=== PATIENT | female | born 1965 | race Two or more races ===

== ENCOUNTER 2025-01-14 15:55 | Emergency (ER) | payer OTHER ==
[~2025-01-14] VITALS: Ht 152.4 cm; Wt 91.9 kg
--- NOTE | 2025-01-14 17:08 | ED.PDOC ---
GI ASSESSMENT HPI Comments 59 year old female with PMHx gallstones presents to ED for chief complaint epigastric abd pain with n/v/d. Pt reports abd pain radiates to right flank region. Pt states pain is similar to cholelithiasis pain. Pt denies chest pain, SOB, and urinary symptoms. Vital signs were stable at arrival. Chief Complaint: Abdominal Pain Time Seen by MD: 16:40 Reviewed Notes: Nurses Notes, Medications, Allergies Allergies: Coded Allergies: NO KNOWN ALLERGIES (Unverified , 01/14/25) Information Source: Patient Mode of Arrival: Ambulatory Timing: Days Duration: Since onset Prehospital treatment: None Quality: Sharp Vomitus: Watery Stool: Normal Severity: Mild Recent: None Recent Hx of: None Pain Location: Epigastric Modifying Factors: Nothing Associated sign and symptoms: Nausea, Vomiting, Diarrhea, Abdominal Pain, Other Past Medical History PAST MEDICAL HISTORY: Gallstones Surgical History: Denies all surgeries 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 Hx Family History Family History: Unknown Social History Smoker: Non-Smoker Alcohol: Denies ETOH Use Drugs: Denies Drug Use Lives In: Home Constitutional: denies: chills, diaphoresis, fatigue, fever, malaise, sweats, weakness, others EENTM: denies: blurred vision, double vision, ear bleeding, ear discharge, ear drainage, ear pain, ear ringing, eye pain, eye redness, hearing loss, mouth pain, mouth swelling, nasal discharge, nose bleeding, nose congestion, nose pain, photophobia, tearing, throat pain, throat swelling, voice changes, others Respiratory: denies: cough, hemoptysis, orthopnea, SOB at rest, shortness of breath, SOB with excertion, stridor, wheezing, others Cardiovascular: denies: chest pain, dizzy spells, diaphoresis, Dyspnea on exertion, edema, irregular heart beat, left arm pain, lightheadedness, palpitations, PND, syncope, others Gastrointestinal: reports: abdominal pain, diarrhea, nausea, vomiting; denies: abdomen distended, blood streaked bowels, constipated, dysphagia, difficulty swallowing, hematemesis, melena, poor appetite, poor fluid intake, rectal bleeding, rectal pain, others Genitourinary: reports: flank pain (left); denies: abnormal vagina bleeding, burning, dyspareunia, dysuria, frequency, hematuria, incontinence, pain, , vagina discharge, urgency, others Neurological: denies: dizziness, fainting, headache, left sided numbness, left sided weakness, numbness, paresthesia, pre-existing deficit, right sided numbness, right sided weakness, seizure, speech problems, tingling, tremors, weakness, others Musculoskeletal: denies: back pain, gout, joint pain, joint swelling, muscle pain, muscle stiffness, neck pain, others Integumetry: denies: bruises, change in color, change in hair/nails, dryness, laceration, lesions, lumps, rash, wounds, others Allergic/Immunocompromised: denies: Difficulty Healing, Frequent Infections, Hives, Itching, others Hematologic/Lymphatic: denies: anemia, blood clots, easy bleeding, easy bruising, swollen glands, others Endocrine: denies: excessive hunger, excessive sweating, excessive thirst, excessive urination, flushing, intolerance to cold, intolerance to heat, unexplained weight gain, unexplained weight loss, others Psychiatric: denies: anxiety, bipolar disorder, depression, hopeless, panic disorder, schizophrenia, sleepless, suicidal, others All Other Systems: Reviewed and Negative Physical Exam General Appearance: Moderate Distress (Moderate distress due to diffuse abdominal pain concerns.), Obese HEENT: Normal ENT Inspection, Pharynx Normal, TMs Normal Neck: Full Range of Motion, Non-Tender, Normal, Normal Inspection Respiratory: Chest Non-Tender, Lungs Clear, No Accessory Muscle Use, No Respiratory Distress, Normal Breath Sounds Cardiovascular: No Edema, No JVD, No Murmur, No Gallop, Normal Peripheral Pulses, Regular Rate/Rhythm Breast Exam: Deferred Gastrointestinal: No Pulsatile Mass, Normal Bowel Sounds, Soft, Other ( Diffuse epigastric tenderness to palpation extending bilaterally. Difficult to assess due to body habitus. No signs of trauma.) Genitalia: Deferred Pelvic: Deferred Rectal: Deferred Extremities: No calf tenderness, Normal capillary refill, Normal inspection, Normal range of motion, Non-tender, No pedal edema Musculoskeletal : Apperance: Normal Neurologic: Alert, No Motor Deficits, Normal Affect, Normal Mood, No Sensory Deficits Cerebellar Function: Normal Reflexes: Normal Skin: Dry, Normal Color, Warm Lymphatic: No Adenopathy Was a procedure done? Was a procedure done?: No GI differential Dx Differential Diagnosis: Bowel Obstruction, Cholangitis, Cholecystitis, Constipation, Gastritis/PUD, Gastroenteritis, Pancreatitis, UTI, Electrolyte Imbalance, Bacterial, Viral X-Ray, Labs, Meds, VS Vital Signs Date Time Temp Pulse Resp B/P (MAP) Pulse Ox O2 Delivery O2 Flow Rate FiO2 01/14/25 19:55 97.7 74 16 136/91 (106) 97 97.7 01/14/25 18:11 84 19 94 Room Air* 0 21 01/14/25 18:11 98.2 87 14 120/73 (89) 94 98.2 01/14/25 17:00 99.0 85 21 135/78 (97) 97 99.0 01/14/25 16:56 86 Lab Test 01/14/25 20:00 01/14/25 17:42 Range/Units Urine Color Yellow Yellow Urine Clarity Turbid H Clear Urine pH 6.0 5.0-9.0 Urine Specific [place] 1.020 1.001-1.035 Urine Protein Trace H Negative Urine Ketones Negative Negative Urine Blood Negative Negative /uL Urine Nitrite Negative Negative Urine Bilirubin Negative Negative Urine Urobilinogen Normal Negative mg/dL Urine Leukocyte Esterase Negative Negative /uL Urine RBC 27 0 - 4 /hpf Urine Microscopic WBC 3 0-5 /HPF Urine Squamous Epithelial Cells Many <5 /hpf Urine Bacteria None seen None Seen /hpf Urine Mucus Few None Seen Urine Glucose Normal Normal mg/dL White Blood Count 11.3 H 4.4-10.8 10^3/uL Red Blood Count 5.26 H 4.0-5.20 10^6/uL Hemoglobin 14.5 12.2-16.2 g/dL Hematocrit 44.5 36.0-46.0 % Mean Corpuscular Volume 84.7 80.0-100.0 fL Mean Corpuscular Hemoglobin 27.6 L 28.0-32.0 pg Mean Corpuscular Hemoglobin Concent 32.6 32.0-36.0 g/dL Red Cell Distribution Width 14.6 H 11.8-14.3 % Platelet Count 254 140-450 10^3/uL Mean Platelet Volume 9.0 6.9-10.8 fL Neutrophils (%) (Auto) 85.1 H 37.0-80.0 % Lymphocytes (%) (Auto) 8.2 L 10.0-50.0 % Monocytes (%) (Auto) 6.0 0.0-12.0 % Eosinophils (%) (Auto) 0.6 0.0-7.0 % Basophils (%) (Auto) 0.1 0.0-2.0 % Neutrophils # (Auto) 9.6 H 1.6-8.6 10 ^3/uL Lymphocytes # (Auto) 0.9 0.4-5.4 10 ^3/uL Monocytes # (Auto) 0.7 0-1.3 10 ^3/uL Eosinophils # (Auto) 0.1 0-0.8 10 ^3/uL Basophils # (Auto) 0 0-0.2 10 ^3/uL Nucleated Red Blood Cells 0.0 % Sodium Level 140 136-145 mmol/L Potassium Level 4.3 3.5-5.1 mmol/L Chloride Level 107 98-107 mmol/L Carbon Dioxide Level 26 20-31 mmol/L Anion Gap 7 5-15 Blood Urea Nitrogen 9 9-23 mg/dL Creatinine 0.68 0.550-1.02 mg/dL Glomerular Filtration Rate Calc 100 >90 mL/min BUN/Creatinine Ratio 13.2 10.0-20.0 Serum Glucose 113 H 74-106 mg/dL Calcium Level 9.6 8.7-10.4 mg/dL Total Bilirubin 0.6 0.2-1.0 mg/dL Aspartate Amino Transferase (AST) 33 13-40 U/L Alanine Aminotransferase (ALT) 24 7-40 U/L Alkaline Phosphatase 100 46-116 U/L Total Protein 8.0 5.7-8.2 g/dL Albumin 4.8 3.2-4.8 g/dL Lipase 30 12-53 U/L Current Medications Medications (Trade) Dose Ordered Sig/Brenda Route Start Time Stop Time Status Last Admin Acetaminophen/ Hydrocodone Bitart ([place] 10/325MG Tab) 1 tab ONCE ONCE PO 01/14/25 17:00 01/14/25 17:02 DC 01/14/25 18:03 Ondansetron HCl (Zofran Po) 4 mg ONCE ONCE PO 01/14/25 17:00 01/14/25 17:02 DC 01/14/25 18:03 PATIENT: LAUREEN LINOOMART: [id number]: [id number] : 1965 LOC: ER ROOM / BED: / AGE / SEX: 59 / F ADM STATUS: REG ER SERVICE [id number] ORDERING PHYSICIAN: SELINA HERNANDEZ PAC PROCEDURE(s): GBUS - GALLBLADDER REASON: Epigastric/ right upper quadrant pain ORDER NUMBER(s): [id number], ACCESSION NUMBER(s): [id number] INDICATION: Epigastric/ right upper quadrant pain TECHNIQUE: Multiple real-time sonographic images of the abdomen were obtained. COMPARISON: None FINDINGS: Increased echogenicity to the hepatic parenchyma suggesting steatosis.. The liver measures 14.45 cm. No intrahepatic biliary ductal dilatation is noted. Common bile duct measures 05.5 mm live ultrasound Ochoa's sign Gallbladder not visualized. Patient is a poor historian. The right kidney measures 9.11 cm. No hydronephrosis. The pancreas is not well visualized due to obscuration from bowel gas. IMPRESSION: 1. Gallbladder not visualized. Patient or historian. Negative ultrasound Ochoa's sign. 2. Liver measures 14.45 cm in length with parenchymal changes suggesting steatosis. 3. Right kidney measures 9.11 cm long and there is no hydronephrosis. HS:Y ATED BY: ATUL HOOD Jr., DO DICTATED DATE/TIME: 01/14/251811 SIGNED BY: ATUL HOOD Jr., SIGNED DATE/TIME: 01/14/251811 X-Ray, Labs, Meds, VS Comment All studies performed the ED were evaluated by me personally. Serum laboratories were unremarkable for any systemic process. Ultrasound was inconclusive for any gallbladder concerns. Fatty liver noted. I believe the patient was having a pain event related to her fatty liver and cholelithiasis history. Advised pain medication as needed. Patient should follow up with primary care provider for discussions related to today's visit. Time of 1ST Reevaluation: 20:51 Reevaluation 1ST: Improved Consultation: PCP Patient Education/Counseling: Diagnosis, Treatment Family Education/Counseling: Diagnosis, Treatment, No Family Present Departure 1 Departure Time of Disposition: 20:51 Impression: Primary Impression: Cholelithiasis Additional Impression: Fatty liver Disposition: HOME / SELF CARE / HOMELESS Condition: Stable Additional Instructions: Advised patient utilize medication as needed for pain relief in additionally, patient should follow up with the primary care provider for discussions related to today's visit. Patient should not drink alcohol or utilize acetaminophen moving forward. e-Prescriptions Ondansetron Odt 4MG Tab (ZOFRAN PO) 4 Mg Tb 4 MG PO Q6HP PRN, #20 TAB ODT TAB-DISSOLVE IN MOUTH, THEN SWALLOW Prov: SELINA HERNANDEZ PAC 01/14/25 Ibuprofen Micronized (Ibuprofen) 800 Mg Tab 800 MG PO Q8HP PRN, #20 TAB Prov: SELINA HERNANDEZ PAC 01/14/25 Discharged With: Self, Friend Critical Care Note Critical Care Time?: No Stability Stability form required: No Heart Score Heart Score: Heart Score Response (Comments) Value History N/A 0 EKG N/A 0 Age N/A 0 Risk Factors N/A 0 Troponin N/A 0 Total 0 I personally scribed for SELINA HERNANDEZ PAC ([email or web address]) on 01/14/25 at 17:08. Electronically submitted by Sana Tohmas ([email or web address]). I personally scribed for SELINA HERNANDEZ PAC ([email or web address]) on 01/14/25 at 20:03. Electronically submitted by Pravin Gomez ([email or web address]). SELINA HERNANDEZ PAC Jan 14, 2025 17:08
[2025-01-14] MEDS: HYDROcodone-ACET 10/325MG TAB PO ONE (18:03)
[2025-01-14] MEDS: ONDANSETRON ODT 4 MG TAB PO ONE (18:03)
[2025-01-14 18:11] VITALS: PULSE 84; RESP 19; O2SAT 94
[2025-01-14 18:15] LABS: Basophils # (auto) 0 10 ^3/uL (0-0.2); Basophils % (auto) 0.1 % (0.0-2.0); Eosinophils # (auto) 0.1 10 ^3/uL (0-0.8); Eosinophils % (auto) 0.6 % (0.0-7.0); Hematocrit 44.5 % (36.0-46.0); Hemoglobin 14.5 g/dL (12.2-16.2); Lymphocytes # (auto) 0.9 10 ^3/uL (0.4-5.4); Lymphocytes % (auto) 8.2 % (10.0-50.0); Mean Corpuscular Hemoglobin 27.6 pg (28.0-32.0); Mean Corpuscular Hgb Conc. 32.6 g/dL (32.0-36.0); Mean Corpuscular Volume 84.7 fL (80.0-100.0); Monocytes # (auto) 0.7 10 ^3/uL (0-1.3); Neutrophils # (auto) 9.6 10 ^3/uL (1.6-8.6); Neutrophils % (auto) 85.1 % (37.0-80.0); Platelet Count (auto) 254 10^3/uL (140-450); Red Blood Cells 5.26 10^6/uL (4.0-5.20); Red Cell Distribution Width 14.6 % (11.8-14.3); White Blood Cell 11.3 10^3/uL (4.4-10.8)
--- NOTE | 2025-01-14 18:15 | DVH ---
INDICATION: Epigastric/ right upper quadrant pain TECHNIQUE: Multiple real-time sonographic images of the abdomen were obtained. COMPARISON: None FINDINGS: Increased echogenicity to the hepatic parenchyma suggesting steatosis.. The liver measures 14.45 cm. No intrahepatic biliary ductal dilatation is noted. Common bile duct measures 05.5 mm live ultrasound Ochoa's sign Gallbladder not visualized. Patient is a poor historian. The right kidney measures 9.11 cm. No hydronephrosis. The pancreas is not well visualized due to obscuration from bowel gas. IMPRESSION: 1. Gallbladder not visualized. Patient or historian. Negative ultrasound Ochoa's sign. 2. Liver measures 14.45 cm in length with parenchymal changes suggesting steatosis. 3. Right kidney measures 9.11 cm long and there is no hydronephrosis. HS:Y
[2025-01-14 18:28] LABS: Alanine Aminotransferase 24 U/L (7-40); Alkaline Phosphatase 100 U/L (46-116); Calcium 9.6 mg/dL (8.7-10.4); Chloride 107 mmol/L (98-107)
[2025-01-14 18:29] LABS: Albumin 4.8 g/dL (3.2-4.8); Anion Gap 7 (5-15); Aspartate Aminotransferase 33 U/L (13-40); BUN/Creatinine Ratio 13.2 (10.0-20.0); Bilirubin, Total 0.6 mg/dL (0.2-1.0); Carbon Dioxide 26 mmol/L (20-31); Lipase 30 U/L (12-53); Potassium 4.3 mmol/L (3.5-5.1); Sodium 140 mmol/L (136-145)
[2025-01-14 18:30] LABS: Blood Urea Nitrogen 9 mg/dL (9-23); Glucose 113 mg/dL (74-106)
[2025-01-14 19:55] VITALS: BP 136/91; PULSE 74; RESP 16; TEMP 97.7; O2SAT 97
[2025-01-14 20:09] LABS: Urine Bacteria None Seen /hpf (None Seen)
[2025-01-14 20:25] LABS: Urine Blood Negative /uL (Negative); Urine Clarity Turbid (Clear); Urine Color Yellow (Yellow); Urine Mucus FEW (None Seen); Urine Protein, UAD TRACE (Negative); Urine Squamous Epithelial Cell MANY /hpf (<5); Urine Urobilinogen Normal (Negative); Urine WBC 3 /HPF (0-5)
[2025-01-14] MEDS ORDERED: TRAM50TA2 PO (20:53)
[2025-01-14] MEDS ORDERED: ZOFR4T PO (20:53)
[2025-01-14] MEDS ORDERED: IBUP-1455 PO (20:53)
--- NOTE | 2025-01-17 11:07 | ECG ---
[facility] Test Date: 2025-01-14 Test Time: 16:56:45 Pat Name: LAUREEN LINO Department: ER Room: Gender: F Core Analyst: PHYLLIS : 1965 Requested By: SELINA HERNANDEZ Order Number: [id number] Reading MD: Measurements Intervals [place] Rate: 86 P: 19 KS: 137 QRS: 8 QRSD: 80 T: 12 QT: 371 QTc: 444 Interpretive Statements Sinus rhythm Abnormal R-wave progression, early transition Please click the below link to view image of tracing.
== END 2025-01-14 21:44 | disposition home or self-care (01) ==
LOC: ER 15:55
DX: K80.20 Calculus of gallbladder without cholecystitis without obstruction (principal); K76.0 Fatty (change of) liver, not elsewhere classified
CPT/HCPCS: 36415; 76705; 80053; 81001; 83690; 85025; 93005; 99284; Q0162